=== PATIENT | female | born 1965 | race Caucasian/White ===

== ENCOUNTER 2024-12-18 10:01 | Emergency (ER) | payer MEDICAID, OTHER ==
[~2024-12-18] VITALS: Ht 167.6 cm; Wt 63.0 kg
[2024-12-18 10:21] VITALS: TEMP 36.6; O2SAT 100
[2024-12-18] MEDS ORDERED: TOBR3.5O RIGHTEYE (10:52)
[2024-12-18] MEDS: TETRACAINE 0.5% OPHTH DROPS 4ML BOTHEYE ONE (11:28)
[2024-12-18] MEDS: FLUORESCEIN SODIUM 1MG/STRIP RIGHTEYE ONE (11:28)
[2024-12-18 11:56] VITALS: BP 114/75; PULSE 71; RESP 18; O2SAT 98
== END 2024-12-18 12:17 | disposition home or self-care (01) ==
LOC: ER 10:01
DX: H53.141 Visual discomfort, right eye (principal); Z79.899 Other long term (current) drug therapy
CPT/HCPCS: 99283